=== PATIENT | male | born 1965 | race Caucasian/White ===

== ENCOUNTER 2016-08-21 10:48 | Observation (INO) | payer OTHER ==
--- NOTE | 2016-08-21 11:00 | CPEKG ---
Heart Rate: 70 RR Interval: 857 P-R Interval: 168 QRSD Interval: 90 QT Interval: 400 QTC Interval: 432 P Lee: 16 QRS Lee: -3 T Wave Lee: 65 EKG Severity - NORMAL ECG - EKG Impression: SINUS RHYTHM Electronically Signed By: Glen Trevino 21-Aug-2016 11:33:54
[2016-08-21] MEDS ORDERED: ASPIRIN 81 MG CHEWABLE TAB PO ONE (11:03)
[2016-08-21] MEDS ORDERED: ASPIRIN 81 MG CHEWABLE TAB ONE (11:04)
[2016-08-21 11:15] LABS: % IMMATURE GRANULYOCYTES 0.5 % (0.0-1.1); ABSOLUTE IMMATURE GRANULOCYTES 0.04 10^3/uL (0.00-0.10); ADD DIFF? NO; ADD MORPH? NO; ADD SCAN? NO; ATYPICAL LYMPHOCYTE FLAG 0 (0-99); FRAGMENT RBC FLAG 0 (0-99); HEMATOCRIT 50.2 % (40.0-51.0); HEMOGLOBIN 17.9 g/dL (13.7-17.5); LEFT SHIFT FLG 0 (0-99); LIPEMIA HEMOLYSIS FLAG 90 (0-99); MEAN CELL HEMOGLOBIN 29.7 pg (27.9-34.1); MEAN CELL HEMOGLOBIN CONCENTR. 35.7 g/dL (32.4-36.7); MEAN CELL VOLUME 83.4 fL (81.5-99.8); MEAN PLATELET VOLUME 9.7 fL (8.7-11.7); PLATELET CLUMPS FLAG 0 (0-99); PLATELET COUNT 315 10^3/uL (150-400); RED BLOOD CELL COUNT 6.02 10^6/uL (4.40-6.38); RED CELL DISTRIBUTION WIDTH 12.6 % (11.5-15.2)
[2016-08-21 11:23] LABS: INR 1.01 (0.83-1.16); PROTIME(PATIENT) 13.2 SEC (12.0-15.0)
[2016-08-21 11:24] LABS: APTT 24.3 SEC (23.0-38.0)
[2016-08-21 11:30] LABS: ANION GAP 12 mEq/L (8-16); CALCIUM 9.4 mg/dL (8.5-10.4); CARBON DIOXIDE 26 mEq/l (22-31); CHLORIDE 103 mEq/L (97-110); CREATININE 0.9 mg/dL (0.7-1.3); GLOMERULAR FILTRATION RATE > 60; GLUCOSE 114 mg/dL (70-100); POTASSIUM 3.7 mEq/L (3.5-5.2); SODIUM 141 mEq/L (134-144)
--- NOTE | 2016-08-21 11:30 | EDPHY ---
H & P Time Seen by Provider: 08/21/16 11:01 HPI/ROS: HPI Chest pain. 51-year-old male by private vehicle with his . Patient complains of intermittent chest discomfort for the last 2-3 weeks but worse over the last 3- 4 days. He reports that last night he was awakened by what he describes as substernal pressure and squeezing. He reports that this lasted about 10-15 minutes then went away. He had another episode of this this morning. He also states that he has felt short of breath. States that this is usually worse when he bends forward. He reports however that he played hockey yesterday and did not feel short of breath while exerting himself nor did he have any significant chest discomfort at that time. He has a history of hypertension and hyperlipidemia. ROS: Constitutional: No fever, no chills. No weakness. Eyes: No discharge. No changes in vision. ENT: No sore throat. No nasal congestion or rhinorrhea. Respiratory: No cough. No shortness of breath. Cardiac: No chest pain, no palpitations. Gastrointestinal: No abdominal pain, no vomiting, no diarrhea. Genitourinary: No hematuria. No dysuria or increased frequency with urination. Musculoskeletal: No back pain. No neck pain. No myalgias or arthralgias. Skin: No rashes. Neurological: No headache. No focal weakness or altered sensation. Past medical history: As above. Primary care physician is Dr. Ibrahim. He is on HCTZ and losartan. His recreation establishment manager is Dr. Gab Brandt. He has not seen Dr. Brandt in over a year. He denies any history of percutaneous coronary intervention. Social history: Nonsmoker. Here with his . Physical Exam: General Appearance: Alert, no distress. This patient is responding to questions appropriately and in full sentences. This patient appears well- hydrated and well-nourished. Eyes: Pupils equal and round no pallor or injection. No lid edema, erythema or injection. Respiratory: There are no retractions, lungs are clear to auscultation with good air movement bilaterally. Cardiovascular: Regular rate and rhythm. No murmur. Gastrointestinal: Abdomen is soft and nontender, no masses, bowel sounds normal. No focal tenderness at McBurney's point. No Sutherland sign. Neurological: Motor sensory function is grossly intact. Cranial nerves are normal. Gait is normal. Skin: Warm and dry, no rashes. Musculoskeletal: Neck is supple and nontender. Extremities are symmetrical. All joints range without pain or impingement. Psychiatric: No agitation. No depression. Database: EKG: EKG time is 10:58 a.m.; EKG shows a narrow complex normal sinus rhythm with a ventricular rate of 70. The CT, QRS, QT intervals are within normal limits. There are no ST-T wave changes indicative of ischemic or injury pattern. No evidence of right heart strain. Interpreted by me. Imaging: Chest x-ray AP portable; the cardiac mediastinal silhouette is unremarkable. No evidence of infiltrate or pneumothorax. No acute cardiopulmonary disease process noted. Interpreted by me. Procedures: Emergency department course: Vital signs were reviewed. Patient placed on a cardiac rehabilitation program director. EKG performed. Patient given 324 mg of chewed aspirin. He denies any significant chest discomfort or dyspnea at this time. 11:55 a.m., patient re-evaluated. Resting comfortably at this time. Results of diagnostic test discussed with him. Recommendations for admission for further evaluation and provocative testing discussed with him and his . They endorse. 12:00 a.m., spoke with hospitalist. Patient accepted for admission. Patient's remaining emergency department course under my care uneventful. He was admitted in stable condition to the [facility] under the care of the hospitalist service. Differential Diagnosis: The differential diagnosis on this patient includes but is not limited to acute coronary syndrome, pulmonary embolism, pericarditis, myocarditis, pleurisy, CHF. This represents a partial list of diagnoses considered. These considerations are based on history, physical exam, past history, reassessment and diagnostic testing. Smoking Status: Former smoker Constitutional: Initial Vital Signs Temperature (C) 36.7 C 08/21/16 10:49 Heart Rate 76 08/21/16 10:49 Respiratory Rate 16 08/21/16 10:49 Blood Pressure 155/138 H 08/21/16 10:49 O2 Sat (%) 94 08/21/16 10:49 O2 Delivery Mode Room Air Allergies/Adverse Reactions: codeine Allergy (Verified 08/21/16 10:51) Home Medications: Medication Instructions Recorded 2 Bp Meds 08/21/16 Medical Decision Making - Data Points Laboratory Results: Laboratory Results 08/21/16 11:00 08/21/16 11:00 08/21/16 11:00 WBC 8.60 10^3/uL (3.80-9.50) RBC 6.02 10^6/uL (4.40-6.38) Hgb 17.9 H g/dL (13.7-17.5) Hct 50.2 % (40.0-51.0) MCV 83.4 fL (81.5-99.8) MCH 29.7 pg (27.9-34.1) MCHC 35.7 g/dL (32.4-36.7) RDW 12.6 % (11.5-15.2) Plt Count 315 10^3/uL (150-400) MPV 9.7 fL (8.7-11.7) Neut % (Auto) 51.2 % (39.3-74.2) Lymph % (Auto) 39.0 % (15.0-45.0) Kings % (Auto) 7.4 % (4.5-13.0) Eos % (Auto) 1.4 % (0.6-7.6) Baso % (Auto) 0.5 % (0.3-1.7) Nucleat RBC Rel Count 0.0 % (0.0-0.2) Absolute Neuts (auto) 4.41 10^3/uL (1.70-6.50) Absolute Lymphs (auto) 3.35 H 10^3/uL (1.00-3.00) Absolute Monos (auto) 0.64 10^3/uL (0.30-0.80) Absolute Eos (auto) 0.12 10^3/uL (0.03-0.40) Absolute Basos (auto) 0.04 10^3/uL (0.02-0.10) Absolute Nucleated RBC 0.00 10^3/uL (0-0.01) Immature Gran % 0.5 % (0.0-1.1) Immature Gran # 0.04 10^3/uL (0.00-0.10) PT 13.2 SEC (12.0-15.0) INR 1.01 (0.83-1.16) APTT 24.3 SEC (23.0-38.0) D-Dimer < 0.27 ug/mLFEU (0.00-0.50) Sodium 141 mEq/L (134-144) Potassium 3.7 mEq/L (3.5-5.2) Chloride 103 mEq/L (97-110) Carbon Dioxide 26 mEq/l (22-31) Anion Gap 12 mEq/L (8-16) BUN 16 mg/dL (7-23) Creatinine 0.9 mg/dL (0.7-1.3) Estimated GFR > 60 Glucose 114 H mg/dL (70-100) Calcium 9.4 mg/dL (8.5-10.4) Troponin I < 0.012 ng/mL (0-0.034) Medications Given: Discontinued Medications Aspirin (Aspirin) 324 mg PO EDNOW ONE Stop: 08/21/16 11:04 Last Admin: 08/21/16 11:09 Dose: 324 mg Departure - Departure Disposition: [facility] Inpatient Acute Clinical Impression: Chest pain Referrals: Jarocho Ibrahim MD [Primary Care Provider] - As per Instructions
--- NOTE | 2016-08-21 11:35 | DX ---
AP chest x-ray 1105 hours. History: Chest pain with shortness of breath. Findings: Comparison to December 26, 2012. Heart size remains upper limits of normal. Pulmonary vasculature is not significant engorged. There i s mild prominent interstitial markings extending to both lung bases left side more than right that co uld represent interstitial infiltrate to or dependent edema. The mid and upper lungs remain clear. Th ere is no pneumothorax. Osseous structures are unchanged. Impression: 1. Mild prominence of bronchial and interstitial markings to the lung bases that could represent some dependent edema, bronchitis, or early pneumonitis.
[2016-08-21 11:41] LABS: TROPONIN I < 0.012 ng/mL (0-0.034)
--- NOTE | 2016-08-21 15:02 | GHP ---
[f rep st] HISTORY AND PHYSICAL DATE OF ADMISSION: 08/21/2016 CHIEF COMPLAINT: Chest pressure, fatigue. HISTORY OF PRESENT ILLNESS: A 51-year-old male, with a history of hypertension. He states that over the last month or so he has been having intermittent chest pressure that lasts about 10 to 15 minutes. This occurred last night. It is not associated with shortness of breath, diaphoresis or activity. Also he has been having decreased exercise tolerance, and he feels short of breath all the time. He was up at [place] feeling short of breath as well. However, he was able to play hockey last week and did not feel these symptoms. He is feeling overall fatigued and not right. He also had some lightheadedness. No fevers or chills. The patient has had several stress tests in the past; the last one was several years ago. REVIEW OF SYSTEMS: A 10-point review of systems is obtained and is negative. PAST MEDICAL HISTORY: Hypertension. MEDICATIONS: Losartan and hydrochlorothiazide. SOCIAL HISTORY: No smoking or alcohol. He is with 2 children. He is usually quite active. FAMILY HISTORY: Multiple family members have coronary artery disease, although it is not clear that they have early-onset disease. PHYSICAL EXAM: VITAL SIGNS: Afebrile, blood pressure is 127/80, heart rate is 64, oxygen saturation 94% on room air. GENERAL: The patient is well developed , in no apparent distress. HEENT: Nonicteric sclerae. Extraocular movements intact. Moist mucous membranes. NECK: Supple, no thyromegaly. LUNGS: Good effort, clear to auscultation bilaterally. CARDIOVASCULAR: Regular rate and rhythm. No murmurs, rubs, or gallops. ABDOMEN: Positive bowel sounds, soft, nontender, nondistended, no hepatosplenomegaly. EXTREMITIES: No clubbing, cyanosis, or edema. SKIN: Without rash, intact. NEUROLOGIC: Alert and oriented x3, moving all 4 extremities equally. PSYCH: Normal mood and affect. LABORATORY DATA: CBC is essentially normal, though hemoglobin is a little bit high at 17.9. Chemistries are also negative. EKG personally reviewed and interpreted, shows normal sinus rhythm with no ischemic changes. Chest x-ray personally reviewed and interpreted as negative. ASSESSMENT: 1. This is a 51-year-old male presenting with chest pressure, as well as progressive fatigue and dyspnea on exertion. I am a little concerned about the dyspnea on exertion and decreased exercise tolerance. He has had a couple stress tests in the past, which I think have only been treadmill EKGs. Because of this symptom we will go ahead and get a nuclear stress test in the morning, rather than a treadmill EKG. 2. Slight elevation of hemoglobin. Obstructive sleep apnea could account for these symptoms. I do have a sleep study from 2012, which did not show obstructive sleep apnea. This could be re-tested outpatient as a possible cause of his fatigue. 3. Hypertension. We will continue his medications. /[id number]/MODL MTDD
[2016-08-22 05:59] LABS: CHOLESTEROL 176 mg/dL (140-220); CHOLESTEROL/HDL RATIO 4.09 RATIO (1.00-4.97); HIGH DENSITY LIPOPROTEIN 43 mg/dL (40-65); LDL/HDL RATIO 2.72 RATIO (1.00-3.64); LOW DENSITY LIPOPROTEIN 117 mg/dL (80-100); NON-HIGH DENSITY LIPOPROTEIN 133 mg/dL (90-129); TRIGLYCERIDE 80 mg/dL (40-150); VERY LOW DENSITY LIPOPROTEINS 16 mg/dL (8-25)
[2016-08-22 06:04] LABS: TROPONIN I 0.014 ng/mL (0-0.034)
[2016-08-22 08:18] VITALS: BP 129/82; PULSE 60; RESP 18; TEMP 98.1; O2SAT 94
[2016-08-22] MEDS ORDERED: HYDROCHLOROTHIAZIDE 25 MG TAB PO SCH (09:00)
[2016-08-22] MEDS ORDERED: LOSARTAN POTASSIUM 50 MG TAB PO SCH (09:00)
[2016-08-22] MEDS ORDERED: ASPIRIN 325 MG TAB PO SCH (09:00)
--- NOTE | 2016-08-22 11:49 | CPR ---
[f rep st] NONINVASIVE CARDIAC PROCEDURE REPORT DATE OF PROCEDURE: 08/22/2016 PROCEDURE: Exercise nuclear stress test. INDICATION FOR PROCEDURE: A 51-year-old male with history of hypertension, usually followed by Dr. Xenia Pierre of [facility], who was admitted yesterday with progressive chest discomfort described as natalia st tightness. The patient states that his chest tightness has been going on for years, but it has be en getting more frequent, and he has been waking up with his chest tightness. He has had 4 negative troponins throughout his hospitalization, and is being stress tested for further risk stratification. DESCRIPTION OF PROCEDURE: Informed consent was obtained. Baseline 12-lead EKG, heart rate, and bloo d pressure were assessed in the supine position. Pulse oximetry was continuous. Patient underwent s tress testing via standard Vijay protocol. 28 mCi of sestamibi were injected at the 11 minute and 40 minute hernandez, and patient exercised until completion at 13 minutes. He was observed in recovery for 5 minutes post exercise. FINDINGS: Baseline EKG shows normal sinus rhythm at 73 bpm. Baseline blood pressure is 118/70 mmHg. The patient's heart rate and blood pressure increased linearly throughout exercise. He had no ches t discomfort during the test. There were no ischemic EKG changes throughout or at peak exercise. He was able to complete 13 minutes of standard Vijay protocol, reaching a maximum heart rate of 159 anand ts per minute with a maximum blood pressure of 170/80 mmHg. Oxygen saturation remained greater than 90% throughout the test. Patient denied any of type of chest discomfort throughout the test. Heart rate and blood pressure decreased linearly throughout recovery. IMPRESSION: 1. Chest tightness with progressing duration and frequency of events. 2. Unknown coronary artery disease status. 3. Normal Vijay protocol stress test. PLAN: The patient will be sent down for nuclear imaging. Pending results, he will be sent home with close followup versus cardiac catheterization for any evidence of reversible myocardial perfusion. /[id number]/MODL
--- NOTE | 2016-08-22 15:25 | GDS ---
[f rep st] DISCHARGE SUMMARY DISCHARGE DIAGNOSES: 1. Chest pain, most likely noncardiac. 2. Dyspnea with exertion. 3. Hypertension. HISTORY: This is a 51-year-old male who presented with intermittent chest pressure not associated wi th activity as well as a month of fatigue and some dyspnea on exertion. HOSPITAL COURSE: Patient was admitted. Troponins were negative x3. He did undergo stress testing, and the stress portion of the nuclear medicine test did show some attenuation in the inferior wall. However, he was able to complete 13 minutes on the Vijay protocol and had no EKG changes or any sympt oms. We are unable to get rest images today. This was discussed with Cardiology who felt this was l ow risk enough for him to be discharged and get rest images on Wednesday. Nuclear Medicine will coordin ate that with the patient. Patient was very anxious to go home, did not want to stay. /[id number]/MODL
--- NOTE | 2016-08-26 11:43 | NM ---
Nuclear Medicine Myocardial Perfusion Scan Clinical History: 51-year-old male recently admitted with intermittent chest pressure, not associated with activity, fatigue, and dyspnea on exertion with subsequent 4 negative serum troponin levels. Th e patient had excise tolerance test with no EKG changes. Rule out myocardial ischemia. Radiopharmaceutical: 28.6 mCi of IV technetium 99m sestamibi (stress portion), and 21.5 mCi of techne tium 99m sestamibi (rest portion). Technique: On August 22, 2016, the patient had a Vijay protocol exercise tolerance test with an exerc ise time of 13 minutes achieving 13.1 METs. The peak heart rate was 159 beats per minute, which is 94 % maximum predicted heart rate, with a peak blood pressure of 170/80. Following the respective rest a nd stress sequences, images were acquired tomographically and reconstructed along with standard cardi ac axes. The study was gated and reviewed on the computer workstation using [employer] [facility] [employer] re. Comparison study: None. Findings: The left ventricular cavity size is normal and the left ventricular contractility is normal with no wall motion abnormality. The computer-generated LVEF is 62%. There is some mild diaphragmati c attenuation near the base. There is no convincing evidence of myocardial ischemia. The quantitative bulls-eye images do not reveal any significant reversible perfusion defect. Drs. Pizarro and Martir al so reviewed this case, and concur with these observations. Impression: There is no convincing scintigraphic evidence of myocardial ischemia.
== END 2016-08-22 11:36 | disposition home or self-care (01) ==
LOC: F1N 12:59
PROVIDERS: ADMIT Family Medicine; ATTEND Family Medicine
DX: R07.9 Chest pain, unspecified (principal); R06.09 Other forms of dyspnea; I10 Essential (primary) hypertension; E78.5 Hyperlipidemia, unspecified; Z82.49 Family history of ischemic heart disease and other diseases of the circulatory system
CPT/HCPCS: 71010; 78451; 93005; 93017; 99285; G0378; A9500